=== PATIENT | female | born 1945 | race Caucasian/White ===

== ENCOUNTER → 2017-01-20 | Outpatient (CLI) | payer BC ==
[~2017-01-20] MED LIST: ATOR-22 PO; ESTROGEN PATCH; RSTOPS OP
[2017-01-20 09:53] LABS: BASO % 0.6 %; BASO ABS # 0.03 K/uL (0-0.2); COMPLETE YES; EOS % 5.3 %; HEMATOCRIT 42.6 % (37-47); IG% 0.2 %; LYMPH % 38.1 %; LYMPH ABS # 1.88 K/uL (1.2-3.4); MEAN CELL VOLUME 93.6 fL (80-100); MEAN CORPUSCULAR HEMOGLOBIN 32.1 pg (25-34); MEAN CORPUSCULAR HGB CONC 34.3 g/dl (32-36); MONO % 7.1 %; NEUT % 48.7 %; PLATELET COUNT 191 K/uL (130-400); RED BLOOD COUNT 4.55 M/uL (4.2-5.4); WHITE BLOOD COUNT 4.93 K/uL (4.8-10.8)
[2017-01-20 10:25] LABS: ALT/SGPT 25 U/L (12-78); AST/SGOT 16 U/L (15-37); BLOOD UREA NITROGEN 13 mg/dl (7-18); BUN/CREATININE RATIO 17.1 (10-20); CALCIUM 8.6 mg/dl (8.5-10.1); CARBON DIOXIDE 32 mmol/L (21-32); CHLORIDE 106 mmol/L (98-107); CREATININE 0.78 mg/dl (0.60-1.20); GLUCOSE 94 mg/dl (70-99); POTASSIUM 4.3 mmol/L (3.5-5.1); SODIUM 142 mmol/L (136-145)
[2017-01-20 10:36] LABS: CHOLESTEROL 191 mg/dl (0-200); CHOLESTEROL/HDL RATIO 2.1; HDL CHOLESTEROL 90 mg/dl; LDL CHOLESTEROL CALCULATED 85 mg/dl; TRIGLYCERIDES 82 mg/dl (0-150); VERY LOW DENSITY LIPOPROT CALC 16 mg/dl
[2017-01-20 10:38] LABS: ESTIMATED AVERAGE GLUCOSE 114 mg/dl; HA1C FLAG Normal (Normal)
[2017-01-20 10:56] LABS: URINE APPEARANCE CLEAR (CLEAR); URINE BILIRUBIN NEG (NEG); URINE COLOR YELLOW; URINE NITRITE NEG (NEG); URINE PH 8.5 (4.5-7.5); URINE SPECIFIC GRAVITY 1.011 (1.000-1.030); UROBILINOGEN NEG (NEG)
[2017-01-20 11:13] LABS: MANUAL MICROSCOPIC REQUIRED? NO; REVIEW REQ? NO
--- NOTE | 2017-02-05 10:07 | CODING QUERY MEDICAL NECESSITY ---
CQSUPPORTING DIAGNOSIS NEEDED A supporting diagnosis is required for the test/procedure performed on this patient in order for us to be reimbursed by the patient's insurance. Please provide a supporting diagnosis for the following test/procedure listed below next to the test name along with your signature. *If there is no additional diagnosis for this patient that would support the following test/procedure please document that below next to the test/procedure. Test(s)/Procedure(s) that require a supporting diagnosis: DOS 01/20/17 GLYCATED HEMOGLOBIN TEST Provider Signature: Date: Thank you Alyssia Hewitt [facility] Information Management Once completed, please kindly fax back to [phone] For questions please call [phone]
== END | disposition home or self-care (01) ==
LOC: C.LAB1850 08:46
PROVIDERS: ATTEND Internal Medicine
DX: E78.00 Pure hypercholesterolemia, unspecified (principal); R73.9 Hyperglycemia, unspecified

== ENCOUNTER → 2017-03-06 | Outpatient (CLI) | payer BC | END | disposition home or self-care (01) | LOC: C.CPL 10:51 | DX: S83.282D Other tear of lateral meniscus, current injury, left knee, subsequent encounter (principal); X58.XXXD Exposure to other specified factors, subsequent encounter ==

== ENCOUNTER → 2017-10-28 | Outpatient (CLI) | payer BC ==
[2017-10-24 12:17] LABS: BLOOD UREA NITROGEN 13 mg/dl (7-18); CREATININE 0.71 mg/dl (0.60-1.20)
--- NOTE | 2017-10-28 14:10 | DIAGNOSTIC IMAGING REPORT ---
LOWER EXT JOINT WITHOUT CLINICAL HISTORY: 72 years-old Female presenting with M25.569 Joint pain, kneeM19.90 [id number] Knee injury, surgery March 29, 2017. TECHNIQUE: Multisequence, multiplanar MR imaging of the left knee was performed without the use of intravenous contrast. IV contrast: None. COMPARISON: Prior MR from 2008 and plain radiographs from 2013. FINDINGS: Localizer images: Unremarkable. No bony edema. Irregularity and increased signal intensity of the posterior weightbearing surface cartilage of the lateral femoral condyle consistent with at least grade 2 injury. Focal chondral defect in the mid to posterior lateral tibial plateau measuring 5 mm in maximal AP dimension. Irregularity of the mid weightbearing portion of the medial femoral condyle. Trace increased signal intensity of the posterior weightbearing portion of the medial femoral condyle ulcer noted. No articular cartilage abnormality of the medial tibial plateau. Focal fissuring and less than 50% thickness defect in the lateral patellar facet measuring 7 mm in transverse dimension. Focal increased signal intensity in the medial trochlear articular cartilage measuring 5 mm in transverse dimension. Medial meniscus intact. Lateral meniscus demonstrates horizontally oriented increased signal intensity in the posterior horn body junction that approaches the articular surface consistent with a degenerative type tear. The abnormality extends anteriorly into the body and anterior horn, which is diffusely abnormal likely indicating a complex tear. The body of the lateral meniscus is partially extruded. Meniscocapsular ligaments are grossly intact. Anterior and posterior cruciate ligaments intact. Medial collateral ligament demonstrates increased signal intensity at its origin with thickening consistent with chronic injury. Lateral collateral ligament including the biceps femoris tendon, fibular collateral ligament, popliteal tendon, and iliotibial band intact. Quadriceps and patellar tendons intact. Mild and infrapatellar subcutaneous edema. Small knee joint effusion. Prominent popliteal cyst noted. Normal muscle bulk and muscle signal intensity although interfascial edema is noted superior to the popliteal fossa. IMPRESSION: 1. Tricompartmental articular cartilage defects as above. 2. 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 3. Chronic sprain of the origin of the medial collateral ligament. 4. Small knee joint effusion. 5. Prominent popliteal cyst. Electronically signed by: Hudson Duval M.D. 10/28/2017 2:09 PM Dictated Date/Time: 10/28/2017 2:01 PM
== END | disposition home or self-care (01) ==
LOC: C.MRI 13:05
PROVIDERS: ATTEND Internal Medicine
DX: M94.8X6 Other specified disorders of cartilage, lower leg (principal); S83.271A Complex tear of lateral meniscus, current injury, right knee, initial encounter; S83.411A Sprain of medial collateral ligament of right knee, initial encounter; M25.461 Effusion, right knee; M71.21 Synovial cyst of popliteal space [Baker], right knee; X58.XXXA Exposure to other specified factors, initial encounter

== ENCOUNTER → 2017-10-29 | Outpatient (CLI) | payer BC ==
--- NOTE | 2017-10-30 14:34 | MAMMOGRAPHY REPORT ---
BILATERAL DIGITAL SCREENING MAMMOGRAM TOMOSYNTHESIS WITH CAD: 10/29/2017 CLINICAL HISTORY: Routine screening. Patient has no complaints. TECHNIQUE: Breast tomosynthesis in addition to standard 2D mammography was performed. Current study was also evaluated with a Computer Aided Detection (CAD) system. COMPARISON: Comparison is made to exams dated: 10/28/2016 mammogram, 10/25/2015 mammogram, 5 ultrasound, 02/15/2015 ultrasound, 02/15/2015 mammogram, and 07/26/2014 ultrasound - [facility]. BREAST COMPOSITION: The tissue of both breasts is heterogeneously dense, which may obscure small mas ses. FINDINGS: There are several stable groupings of faint punctate microcalcifications throughout the le ft greater than right breast, which appear similar on all available prior mammograms dating back to a t least 2007 therefore likely benign. No suspicious mass, architectural distortion or cluster of new , suspicious microcalcifications is seen. IMPRESSION: ACR BI-RADS CATEGORY 1: NEGATIVE There is no mammographic evidence of malignancy. A 1 year screening mammogram is recommended. The pa tient will receive written notification of the results. Approximately 10% of breast cancers are not detected with mammography. A negative mammographic report should not delay biopsy if a clinically suggestive mass is present. Ladonna Ferrell M.D. ay/:10/29/2017 16:30:22 Health Aid: Devika TORRESR, M, [facility] letter sent: Normal 1/2 BI-RADS Code: ACR BI-RADS Category 1: Negative
== END | disposition home or self-care (01) ==
LOC: C.MAMM 14:46
PROVIDERS: ATTEND Internal Medicine
DX: Z12.31 Encounter for screening mammogram for malignant neoplasm of breast (principal)

== ENCOUNTER → 2017-12-15 | Outpatient (CLI) | payer BC | END | disposition home or self-care (01) | LOC: C.PATHSPEC 17:24 | PROVIDERS: ATTEND Physician Assistant | DX: L82.1 Other seborrheic keratosis (principal) ==

== ENCOUNTER → 2017-12-26 | Outpatient (CLI) | payer BC ==
[2017-12-26 13:42] LABS: BLOOD UREA NITROGEN 13 mg/dl (7-18); CALCIUM 9.6 mg/dl (8.5-10.1); CARBON DIOXIDE 28 mmol/L (21-32); CREATININE 0.78 mg/dl (0.60-1.20); GLUCOSE 87 mg/dl (70-99); POTASSIUM 4.1 mmol/L (3.5-5.1); SODIUM 140 mmol/L (136-145)
== END | disposition home or self-care (01) ==
LOC: C.LAB1850 11:41
PROVIDERS: ATTEND Internal Medicine
DX: R03.0 Elevated blood-pressure reading, without diagnosis of hypertension (principal)

== ENCOUNTER → 2018-03-24 | Outpatient (CLI) | payer BC ==
[2018-03-24 09:36] LABS: HEMATOCRIT 40.8 % (37-47); HEMOGLOBIN 13.9 g/dL (12.0-16.0); MEAN CELL VOLUME 92.1 fL (80-100); MEAN CORPUSCULAR HEMOGLOBIN 31.4 pg (25-34); MEAN CORPUSCULAR HGB CONC 34.1 g/dl (32-36); MEAN PLATELET VOLUME 10.6 fL (7.4-10.4); PLATELET COUNT 222 K/uL (130-400); RED CELL DISTRIBUTION WIDTH CV 12.3 % (11.5-14.5); RED CELL DISTRIBUTION WIDTH SD 41.5 fL (36.4-46.3); WHITE BLOOD COUNT 4.41 K/uL (4.8-10.8)
[2018-03-24 10:09] LABS: BASO % 0.7 %; BASO ABS # 0.03 K/uL (0-0.2); EOS % 6.6 %; EOS ABS # 0.29 K/uL (0-0.5); IG# 0.01 K/uL (0.00-0.02); LYMPH % 50.8 %; LYMPH ABS # 2.24 K/uL (1.2-3.4); MONO % 4.3 %; MONO ABS # 0.19 K/uL (0.11-0.59); NEUT % 37.4 %; NEUT ABS # 1.65 K/uL (1.4-6.5)
[2018-03-24 11:45] LABS: HEMOGLOBIN A1C 5.4 % (4.5-5.6)
[2018-03-24 13:49] LABS: ALT/SGPT 28 U/L (12-78); AST/SGOT 21 U/L (15-37); BLOOD UREA NITROGEN 16 mg/dl (7-18); CALCIUM 8.8 mg/dl (8.5-10.1); CARBON DIOXIDE 29 mmol/L (21-32); CREATININE 0.74 mg/dl (0.60-1.20); GLUCOSE 88 mg/dl (70-99); POTASSIUM 4.1 mmol/L (3.5-5.1); SODIUM 140 mmol/L (136-145)
[2018-03-24 14:01] LABS: CHOLESTEROL 166 mg/dl (0-200); LDL CHOLESTEROL CALCULATED 83 mg/dl
== END | disposition home or self-care (01) ==
LOC: C.LAB1850 07:40
PROVIDERS: ATTEND Internal Medicine
DX: E78.00 Pure hypercholesterolemia, unspecified (principal)

== ENCOUNTER → 2018-06-26 | Outpatient (CLI) | payer BC ==
--- NOTE | 2018-06-26 11:58 | DIAGNOSTIC IMAGING REPORT ---
R EXTREMITY NONVASCULAR LIMITED CLINICAL HISTORY: 73 years-old Female presenting with M25.569 Joint pain, knee. TECHNIQUE: Real-time grayscale ultrasound imaging of the right popliteal fossa was performed for a focused evaluation at the site of clinical concern. Color Doppler ultrasound imaging was also performed. COMPARISON: MR from 10/28/2017. FINDINGS: Complex partially solid partially cystic mass in the right popliteal fossa. Peripheral lobular soft tissue is vascularized. This collection measures 5.2 x 0.6 x 3.1 cm there is this correlates with the site of the moderate popliteal fossa evident on prior MR. No surrounding fluid or inflammation is evident on ultrasound. IMPRESSION: 1. Findings most consistent with right popliteal cyst. Given the degree of peripheral lobular soft tissue, synovitis cannot be excluded. No evidence of rupture. Electronically signed by: Hudson Duval M.D. 06/26/2018 11:56 AM Dictated Date/Time: 06/26/2018 11:55 AM
== END | disposition home or self-care (01) ==
LOC: C.ULTR 11:25
PROVIDERS: ATTEND Physician Assistant
DX: M25.561 Pain in right knee (principal)